=== PATIENT | female | born 1995 | race American Indian/Alaskan Native ===

== ENCOUNTER 2017-04-30 02:46 | Outpatient (CLI) | payer MEDICAID ==
[2017-04-30] MEDS ORDERED: LACTATED RINGERS 500 ML IV ONE (03:24)
[2017-04-30 06:38] LABS: Bacteria,Urine 1+ /HPF (Negative); Bilirubin,Urine NEG (Negative); Blood,Urine NEG (Negative); Color,Urine Yellow (Yellow); Mucus,Urine FEW /HPF; Nitrite,Urine NEG (Negative); Protein,Urine <15 mg/dL mg/dL (Negative); Urobilinogen,Urine < 2.0 mg/dL (<2.0)
[2017-04-30 06:42] LABS: Amphetamine Screen,Urine PRESUMPTIVE NEGATIVE; Benzodiazepines Screen,Urine PRESUMPTIVE NEGATIVE; Cannabinoid Screen,Urine PRESUMPTIVE NEGATIVE; Cocaine Screen,Urine PRESUMPTIVE NEGATIVE; Methadone Screen,Urine PRESUMPTIVE NEGATIVE; Opiate Screen,Urine PRESUMPTIVE NEGATIVE
[2017-04-30 07:36] VITALS: BP 102/50
[2017-04-30 09:07] LABS: Rubella IgG Antibody Immune (Immune)
[2017-04-30 10:51] LABS: Hepatitis C Virus Antibody Non-Reactive (NonReactive)
--- NOTE | 2017-04-30 15:42 | Ultrasound Report ---
FINAL REPORT EXAM: US OB > = 14 WEEKS FETUS HISTORY: wellbeing TECHNIQUE: Transabdominal sonography of the pelvis. PRIORS: None. FINDINGS: There is a single, live intrauterine in cephalic presentation. heart motion is detected and 4 chamber heart visualized. Placenta is located posterior and there is no evidence of previa. Biometric data obtained and corresponds to an estimated gestational age of 28 weeks 0 days and an ultrasound estimated date of delivery of 23 July 2017 (it should be noted that an examination performed earlier in may yield more accurate dating). No gross anomalies are noted, including brain, spine, heart, stomach, kidneys and urinary bladder. Amniotic fluid index is 8.8 cm. BPD: 7.06 cm HC: 26.18 cm AC: 23.26 cm FL: 5.23 cm Remainder of the uterus and adnexa grossly unremarkable. IMPRESSION: 1. Single, live intrauterine .
== END 2017-04-30 08:30 | disposition home or self-care (01) ==
LOC: TRG 02:46
PROVIDERS: ATTEND Obstetrics & Gynecology
DX: O26.893 Other specified pregnancy related conditions, third trimester (principal); W19.XXXA Unspecified fall, initial encounter; Z3A.28 28 weeks gestation of pregnancy; Y93.89 Activity, other specified; Y92.89 Other specified places as the place of occurrence of the external cause; Y99.8 Other external cause status
CPT/HCPCS: 36415; 76805; 80307; 81001; 85660; 86592; 86706; 86762; 86803; 86850; 86900; 86901; 87806